=== PATIENT | female | born 1990 ===

== ENCOUNTER 2018-09-12 01:10 | Emergency (ER) | payer MEDICAID ==
--- NOTE | 2018-09-11 21:18 | ED PDOC ---
HPI: General Adult Time Seen by Provider: 09/11/18 21:00 Chief Complaint (Nursing): GI Problem Chief Complaint (Provider): clearance History Per: Patient History/Exam Limitations: no limitations Additional Complaint(s): 28 y/o female here in police custody for clearance for incarceration. Patient states she is approximately 20 weeks , complaining of lower abdominal pain currently. Patient states she uses 30 bags of heroin daily. +nausea. Denies fever, vomiting, chest pain, shortness of breath, vaginal bleeding/discharge, urinary symptoms, suicidal/homicidal ideations. Past Medical History Reviewed: Historical Data, Nursing Documentation, Vital Signs Vital Signs: Last Vital Signs Temp 98.4 F 09/11/18 20:36 Pulse 65 09/11/18 20:36 Resp 14 09/11/18 20:36 BP 123/67 09/11/18 20:36 Pulse Ox 99 09/11/18 20:36 - Medical History PMH: No Chronic Diseases Denies: Diabetes, Hepatitis, HIV, HTN, Seizures, Sexually Transmitted Disease - Surgical History Surgical History: No Surg Hx - Family History Family History: States: Unknown Family Hx - Social History Current smoker - smoking cessation education provided: Yes Alcohol: None Drugs: Opiates - Immunization History Hx Tetanus Toxoid Vaccination: No (not sure of last tetanus) Hx Influenza Vaccination: No Hx Pneumococcal Vaccination: No - Home Medications Home Medications: Ambulatory Orders Medication Instructions Recorded Nitrofurantoin Macrocrystals 100 mg PO BID #9 cap 09/11/18 [Macrobid] - Allergies Allergies/Adverse Reactions: Allergies Allergy/AdvReac Type Severity Reaction Status Date / Time FISH Allergy RASH Verified 09/11/18 20:36 Review of Systems ROS Statement: Except As Marked, All Systems Reviewed And Found Negative Gastrointestinal: Positive for: Abdominal Pain Physical Exam - Reviewed Nursing Documentation Reviewed: Yes Vital Signs Reviewed: Yes - Physical Exam Appears: Positive for: Well, Non-toxic, No Acute Distress Head Exam: Positive for: ATRAUMATIC, NORMAL INSPECTION, NORMOCEPHALIC Skin: Positive for: Normal Color Eye Exam: Positive for: Normal appearance Cardiovascular/Chest: Positive for: Regular Rate, Rhythm Respiratory: Positive for: Normal Breath Sounds Gastrointestinal/Abdominal: Positive for: Bowel Sounds, Soft, Tenderness (lower abdominal discomfort to palpation) Back: Positive for: Normal Inspection Extremity: Positive for: Normal ROM Neurologic/Psych: Positive for: Alert, Oriented (x3) - ECG O2 Sat by Pulse Oximetry: 99 - Progress ED Course And Treament: urine, OB u/s, Tylenol PO, zofran IM, crisis eval Date of service: 09/11/2018 Procedure OB , limited. History None available. Comparison None available. Findings Uterus Number: 1 Placenta: Anterior. Relationship to Os: Clear. Position: Breech. Motion: Present Heart Rate: 135 beats per minute The following measurements were obtained: BPD 5.21 cm- 21 weeks 0 days. HC 18.83 cm- 21 weeks 1 day. AC 15.1 cm- 20 weeks 2 days. FL 3.8 mm- 22 weeks 1 day. Estimated ultrasound gestational age- 21 weeks, 3 days (+/- 1 week 3 days). Posterior fundal fibroid measuring 5.9 x 5.8 x 7.7 cm. Cervix Measures 4.53 cm. Closed. No cervical abnormality seen. Right Ovary Not visualized. Left Ovary Not visualized. Free Fluid None. Other Findings None. Impression Single live intrauterine gestation 21 weeks, 3 days (+/- 1 week 3 days). Posterior fundal fibroid of 5.9 x 5.8 x 7.7 cm. Bilateral ovaries not visualized. Patient tolerating PO on re-eval Patient evaluated by mold worker and cleared for discharge as per Dr. Villalba Patient discharged from ED and sent up to OB/ED Disposition - Clinical Impression Clinical Impression: Uterine fibroid, Abdominal pain during , UTI (urinary tract infection), Heroin abuse - Patient ED Disposition Is Patient to be Admitted: No Counseled Patient/Family Regarding: Studies Performed, Diagnosis, Need For Followup, Rx Given - Disposition Disposition: Routine/Home Disposition Time: 00:53 Condition: IMPROVED Additional Instructions: Patient medically and psychiatrically cleared for incarceration Prescriptions: Nitrofurantoin Macrocrystals [Macrobid] 100 mg PO BID #9 cap Instructions: Urinary Tract Infections in Adults, Uterine Fibroids, Round Ligament Pain, Drug Abuse and Drug Addiction (DC)
[2018-09-11 22:02] LABS: SQUAMOUS EPITHIAL 6 /hpf (0-5); URINE BACTERIA RARE (<OCC); URINE BILIRUBIN NEGATIVE (NEGATIVE); URINE BLOOD NEGATIVE (NEGATIVE); URINE CLARITY CLOUDY (Clear); URINE COLOR YELLOW (YELLOW); URINE GLUCOSE (UA) NEG (Normal); URINE LEUKOCYTE ESTERASE SMALL Leu/uL (Negative); URINE PROTEIN NEGATIVE (NEGATIVE); URINE UROBILINOGEN 0.2-1.0 mg/dL (0.2-1.0)
[2018-09-12 00:59] VITALS: RESP 18; TEMP 97.8; O2SAT 100
[2018-09-12 06:45] VITALS: BP 118/57; PULSE 63
--- NOTE | 2018-09-12 08:41 | OBHP ---
Datetime: 09/12/2018 01:30 IP Adm Impression: , intrauterine IP Admit Plan: Observation/Evaluation; Discharge home Admit Comment, IP Provider: 28 y/o at 23.6 w/LIAM of 01/03/2019, LMP 03/2018 w/current heroine u se is presenting for ob clearance prior to going to residential. Last use of heroine was yesterday at 11am. She reports vomitting, diarrhea _ bone pain. +FM, +shivers _ denies vb, ctx, loss of fluid, cp or sob . OBGYNhx:hx of UTI tx with macrobid PMH: denies Allergies:NKA meds: PNV Sochx: +heroine use, denies EtOH use Surghx: denies ROS: 12 points reviewed _ neg unless otherwise mentioned in HPI VS: BP-118/57 spo2-100%, P-64bpm, RR-16 Gen: laying in supine position with right hand cuffed to bedrail, restless, shivering Cardio: s1s2 auscultated, no murmurs Lungs: Resp effort normal; cta b/l, no adventitious sounds Abd: Gravid, BS+, nontender Ext: calves nontender NeuroPsych: A _ O x 3; agitated, irritated, yelling intermittently to be released and stating she could not lay still because she was "dope sick" A/P: 28 y/o at 23.6 w/LIAM of 01/03/2019, LMP 03/2018 w/current heroine use is presenting for ob clearance prior to going to residential. - FHR baseline 135 -Patient cleared to go to residential Case discussed with Dr. Marie Richmond, FM, PGY-1 OB Hospitalist on-call. Pt seen by PGY1 after pt came from ER (cleared medically). She had FH anna cked and sent with officers DELGADO - She was advised to have OB follow up within 1-2w Extremities - PN: Normal Abdomen - PN: Normal Lungs - PN: Normal Heart - PN: Normal General - PN: Normal FHR - Baseline A Provider: 135 Gestation - Est Wks by US: 23.6 IP Hx Assessment: No Care EGA AdmitDate IP: 23.6 Vital Signs Provider: Reviewed; Within Normal Limits IP Chief Complaint: Maternal discomfort
--- NOTE | 2018-09-12 08:43 | OBDCSUM ---
Datetime: 09/12/2018 01:31 Discharged to, Provider: Home Follow up at, Provider: OB provider Disch Instr Activity: Normal activity Disch Instr Diet: Regular Discharge Time: 09/12/2018 01:32 Follow up in weeks, Provider: 1-2w Disch Referrals: None Disch Activity Restrictions: No lifting
--- NOTE | 2018-09-12 13:52 | US ---
Indication: ; abd pain Comparison: None available Technique: Real-time ultrasound was performed through the pelvis. Findings: There is a single living fetus in breech presentation. Amniotic fluid volume is within normal limits. Anterior placenta. The placenta is not previa. There are no adnexal masses or cysts evident. Heterogeneous posterior fundal mass consistent with fibroid measures 5.9 x 5.8 x 7.7 cm. Cervix length measures approximately 4.5 cm. Measurements and calculations: Fetus has a composite sonographic age of 21 weeks 3 days. This calculation is based on the biparietal diameter, head circumference, abdominal circumference, and femur length. Estimated heart rate 135 beats per min. Estimated weight 405.6 g. Impression: Single living fetus with a composite sonographic age of 21 weeks 3 days. Estimated heart rate 135 beats per min. Heterogeneous posterior fundal mass consistent with fibroid measures 5.9 x 5.8 x 7.7 cm. The study was performed for the emergent evaluation of pain, and the whole anatomic survey of the fetus was not performed. This should be performed on an outpatient elective basis as clinically warranted. Preliminary impression was provided by [employer].
== END 2018-09-12 01:35 ==
LOC: H.EROB2 01:10
DX: O26.92 Pregnancy related conditions, unspecified, second trimester (principal); R10.2 Pelvic and perineal pain; O23.42 Unspecified infection of urinary tract in pregnancy, second trimester; F11.10 Opioid abuse, uncomplicated; O34.12 Maternal care for benign tumor of corpus uteri, second trimester; Z3A.21 21 weeks gestation of pregnancy
CPT/HCPCS: 76815; 81003; 81025; 87086; 87181; 96372; 99283; J2405